=== PATIENT | female | born 1965 | race Caucasian/White ===

== ENCOUNTER 2022-10-06 07:57 | Day surgery (SDC) | payer MEDICAID ==
[~2022-10-06] VITALS: Ht 160 cm; Wt 113.2 kg
[~2022-10-06 07:57] MED LIST: BECL7.3A INH; CYCL-1 PO; ESTR0.5T PO; FERR-86 PO; GABA-532 PO; LEVE500T PO; LISI10TA27 PO; LOVA20TA2 PO; PANT-47 PO
[2022-10-06 08:05] VITALS: BP 134/86
[2022-10-06] MEDS ORDERED: fentaNYL/PF 50MCG/1 ML 2ML syringe ONE (08:49)
[2022-10-06] MEDS ORDERED: MIDAZolam 1 MG/ML 5ML VIAL ONE (08:50)
[2022-10-06] MEDS ORDERED: LIDOcaine Viscous 15ml cup ONE (08:50)
[2022-10-06] MEDS ORDERED: DICY10CA88 PO (09:29)
[2022-10-06] MEDS ORDERED: IPRA3AMP9 IH (09:29)
[2022-10-06] MEDS ORDERED: DOCU-148 PO (09:29)
[2022-10-06] MEDS ORDERED: ASPI-1265 PO (09:29)
[2022-10-06] MEDS ORDERED: VITA400T10 PO (09:29)
[2022-10-06] MEDS ORDERED: METH-797 PO ×2 (09:29)
[2022-10-06] MEDS ORDERED: SUCR1TAB PO (09:29)
[2022-10-06] MEDS ORDERED: MONT-40 PO (09:29)
[2022-10-06] MEDS ORDERED: ALEN70TA80 PO (09:29)
[2022-10-06] MEDS ORDERED: OMEG-167 PO (09:29)
[2022-10-06] MEDS ORDERED: IRON15TA3 PO (09:29)
[2022-10-06] MEDS ORDERED: HYDR-3686 PO (09:29)
[2022-10-06] MEDS ORDERED: ADV50100 IH (09:32)
[2022-10-06] MEDS ORDERED: TIZA-189 PO (09:32)
[2022-10-06] MEDS ORDERED: BECL7.3A INH (09:32)
[2022-10-06] MEDS ORDERED: ATOR40TA PO (09:32)
[2022-10-06 10:16] VITALS: BP 130/69
[2022-10-06 10:26] VITALS: BP 125/71
[2022-10-06 10:36] VITALS: BP 128/69
[2022-10-06 10:46] VITALS: BP 125/77
== END 2022-10-06 11:15 | disposition home or self-care (01) ==
LOC: GI LAB 07:57
PROVIDERS: ATTEND Internal Medicine Gastroenterology
DX: R13.14 Dysphagia, pharyngoesophageal phase (principal); R07.89 Other chest pain; K29.70 Gastritis, unspecified, without bleeding; G40.909 Epilepsy, unspecified, not intractable, without status epilepticus; F12.90 Cannabis use, unspecified, uncomplicated; Z87.891 Personal history of nicotine dependence; D86.9 Sarcoidosis, unspecified; Z90.49 Acquired absence of other specified parts of digestive tract; Z98.890 Other specified postprocedural states; Z88.2 Allergy status to sulfonamides; Z88.8 Allergy status to other drugs, medicaments and biological substances; Z91.09 Other allergy status, other than to drugs and biological substances; Z79.82 Long term (current) use of aspirin; Z79.899 Other long term (current) drug therapy
CPT/HCPCS: 43239; 43248; 99152; C1769; J2250; J3010; J7030; Z7512; A4620

== ENCOUNTER 2023-03-11 11:52 | Emergency (ER) | payer MEDICAID ==
[~2023-03-11] VITALS: Ht 160 cm; Wt 113.6 kg
[~2023-03-11 11:52] MED LIST changes: +ADV50100 IH; +ALEN70TA80 PO; +ASPI-1265 PO; +ATOR40TA PO; +DICY10CA88 PO; +DOCU-148 PO; +HYDR-3686 PO; +IPRA3AMP9 IH; +IRON15TA3 PO; +METH-797 PO; +MONT-40 PO; +OMEG-167 PO; +SUCR1TAB PO; +TIZA-189 PO; +VITA400T10 PO
[2023-03-11 12:27] VITALS: BP 173/68; PULSE 74; RESP 16; TEMP 98.4; O2SAT 98
== END 2023-03-11 18:18 | disposition left against medical advice (07) ==
LOC: ER 11:53
DX: R22.43 Localized swelling, mass and lump, lower limb, bilateral (principal); Z53.21 Procedure and treatment not carried out due to patient leaving prior to being seen by health care provider
CPT/HCPCS: 99281